=== PATIENT | male | born 1975 | race Caucasian/White ===

== ENCOUNTER 2019-11-02 10:48 | Emergency (ER) | payer OTHER ==
[~2019-11-02] VITALS: Ht 185.4 cm; Wt 136.1 kg
[~2019-11-02 10:48] MED LIST: CYCL10 PO; ESCI10 PO; HYDACE5325 PO; IBUP800 PO; LAMO100 PO; VERA80 PO
[2019-11-02 12:13] LABS: Alanine Aminotransfer (ALT/SGP 66 U/L (12-78); Albumin, Blood 2.9 g/dL (3.4-5.0); Albumin/Globulin Ratio 0.6 (0.8-1.8); Alk Phos 68 U/L (50-136); Anion Gap 10 mmol/L (6-16); Aspartate Aminotrans (AST/SGOT 44 U/L (12-37); Bilirubin, Total 0.4 mg/dL (0.1-1.0); Blood Urea Nitrogen 19 mg/dL (8-24); Bun/Creatinine Ratio 14.8 (12.0-20.0); CO2, Blood 22 mmol/L (21-32); Calcium, Blood 7.5 mg/dL (8.5-10.1); Chloride, Blood 99 mmol/L (98-108); Creatinine, Blood 1.28 mg/dL (0.60-1.20); Globulin, Blood 4.6 g/dL (2.2-4.0); Glomerular Filtration Rate >60 (60-); Glucose, Blood 173 mg/dL (70-99); Potassium, Blood 3.9 mmol/L (3.5-5.5); Sodium, Blood 131 mmol/L (136-145); Total Protein, Blood 7.5 g/dL (6.4-8.2); Troponin I <0.015 ng/mL (0.000-0.040)
[2019-11-02 12:45] LABS: BASOPHILS ABSOLUTE AUTO 0.04 K/mm3 (0.00-0.23); BASOPHILS PERCENT AUTO 0 % (0-2); EOSINOPHILS PERCENT AUTO 0 % (0-6); Hematocrit 37.6 % (37.0-53.0); Hemoglobin 12.6 g/dL (13.5-17.5); IMMATURE GRAN ABSOLUTE AUTO 0.06 K/mm3 (0.00-0.10); IMMATURE GRAN PERCENT AUTO 1 % (0-1); LYMPHOCYTES ABSOLUTE AUTO 0.51 K/mm3 (0.84-5.20); LYMPHOCYTES PERCENT AUTO 6 % (21-46); MONOCYTES PERCENT AUTO 11 % (4-13); Mean Corpuscular HGB 28.9 pg (26.0-34.0); Mean Corpuscular HGB Conc 33.5 g/dL (31.5-36.5); Mean Corpuscular Volume 86 fL (80-100); Mean Platelet Volume 9.7 fL (9.1-12.4); NEUTROPHILS ABSOLUTE AUTO 7.46 K/mm3 (1.96-9.15); NEUTROPHILS PERCENT AUTO 82 % (41-73); Platelet Count 200 K/mm3 (150-400); RDW Coefficient Variation 12.1 % (11.7-14.2); RDW Standard Deviation 38.6 fL (35.1-46.3); Red Blood Cell Count 4.36 M/mm3 (4.30-5.90); White Blood Cell Count 9.07 K/mm3 (4.00-11.30)
[2019-11-02 13:31] LABS: Adenovirus Not Detected (NOT DETECT); Bordetella pertussis Not Detected (NOT DETECT); Chlamydophila pneumoniae Not Detected (NOT DETECT); Coronavirus 229E Not Detected (NOT DETECT); Coronavirus HKU1 Not Detected (NOT DETECT); Coronavirus NL63 Not Detected (NOT DETECT); Coronavirus OC43 Not Detected (NOT DETECT); Human Metapneumovirus Not Detected (NOT DETECT); Human Rhinovirus/Enterovirus Not Detected (NOT DETECT); Influenza A/2009-H1 Not Detected (NOT DETECT); Influenza A/H1 Not Detected (NOT DETECT); Influenza A/H3 Not Detected (NOT DETECT); Influenza B Not Detected (NOT DETECT); Mycoplasma pneumoniae Not Detected (NOT DETECT); Parainfluenza Virus 1 Not Detected (NOT DETECT); Parainfluenza Virus 2 Not Detected (NOT DETECT); Parainfluenza Virus 3 Not Detected (NOT DETECT); Parainfluenza Virus 4 Not Detected (NOT DETECT); Respiratory Syncytial Virus Not Detected (NOT DETECT)
[2019-11-02] MEDS ORDERED: Zithromax250 MG PO (13:48)
[2019-11-02] MEDS ORDERED: BENZ100A PO ×2 (13:48→14:06)
[2019-11-02] MEDS ORDERED: ONDA4ODT MM ×2 (13:48→14:06)
[2019-11-02] MEDS ORDERED: CEFD300 PO ×2 (13:48→14:05)
[2019-11-02] MEDS ORDERED: AZIT250 PO (14:04)
[2019-11-02] MEDS ORDERED: MECL25 PO (14:07)
[2019-11-02] MEDS ORDERED: GABA300 PO (14:07)
== END 2019-11-02 15:10 | disposition home or self-care (01) ==
LOC: ER 10:48
PROVIDERS: Emergency Medicine
DX: J18.9 Pneumonia, unspecified organism (principal); Z20.828 Contact with and (suspected) exposure to other viral communicable diseases; I10 Essential (primary) hypertension; Z79.899 Other long term (current) drug therapy
CPT/HCPCS: 0099U; 36415; 71045; 80053; 84145; 84484; 85025; 86140; 96361; 96365; 96375; 99283-25; J0696; J1885; J2405; J7030; J7120; U0002

== ENCOUNTER 2022-05-19 09:37 | Day surgery (SDC) | payer OTHER ==
[~2022-05-19] VITALS: Ht 185.4 cm; Wt 145.6 kg
[~2022-05-19 09:37] MED LIST changes: +ACET500 PO; +AZIT250 PO; +BENZ100A PO; +CEFD300 PO; +GABA300 PO; +MECL25 PO; +METF500 PO; +ONDA4ODT MM; +Zithromax250 MG PO
--- NOTE | 2022-05-19 10:43 | NUR ---
History, Chart, Medications and Allergies reviewed before start of procedure. Patient confirms NPO status and agrees with scheduled surgery. Lungs clear T/O to Auscultation.
--- NOTE | 2022-05-19 11:00 | NUR ---
NOZIN X3 AMPULES USED TO CLEAN NARES BILAT PER DR MICHEL. KNEE HIGH BRET HOSE WITH CALF PAS APPLIED BLE.
--- NOTE | 2022-05-19 18:52 | NUR ---
SHIFT SUMMARY PT S/P FOR L TOTAL HIP. PT EXPERIENCING A LOT OF PAIN AND DESATS WHILE SLEEPING. PT'S PAIN TREATED PER EMR AND BREATHING IS IMPROVING WITH COUGHING/DEEP BREATHING.
[2022-05-20 04:46] LABS: BASOPHILS ABSOLUTE AUTO 0.02 K/mm3 (0.00-0.23); BASOPHILS PERCENT AUTO 0 % (0-2); EOSINOPHILS PERCENT AUTO 0 % (0-6); Hematocrit 33.7 % (37.0-53.0); Hemoglobin 11.3 g/dL (13.5-17.5); IMMATURE GRAN PERCENT AUTO 1 % (0-1); LYMPHOCYTES ABSOLUTE AUTO 1.58 K/mm3 (0.84-5.20); LYMPHOCYTES PERCENT AUTO 8 % (21-46); MONOCYTES ABSOLUTE AUTO 1.43 K/mm3 (0.16-1.47); MONOCYTES PERCENT AUTO 7 % (4-13); Mean Corpuscular HGB 28.8 pg (26.0-34.0); Mean Corpuscular HGB Conc 33.5 g/dL (31.5-36.5); Mean Corpuscular Volume 86 fL (80-100); Mean Platelet Volume 9.8 fL (9.1-12.4); NEUTROPHILS ABSOLUTE AUTO 17.52 K/mm3 (1.96-9.15); NEUTROPHILS PERCENT AUTO 85 % (41-73); Platelet Count 287 K/mm3 (150-400); RDW Coefficient Variation 12.3 % (11.7-14.2); RDW Standard Deviation 38.9 fL (35.1-46.3); Red Blood Cell Count 3.92 M/mm3 (4.30-5.90); White Blood Cell Count 20.65 K/mm3 (4.00-11.30)
[2022-05-20 05:08] LABS: Bun/Creatinine Ratio 28.1 (12.0-20.0); Calcium, Blood 8.3 mg/dL (8.5-10.1); Creatinine, Blood 1.14 mg/dL (0.60-1.20); Potassium, Blood 4.7 mmol/L (3.5-5.5)
--- NOTE | 2022-05-20 07:13 | NUR ---
SHIFT SUMMARY NO ACUTE CHANGES THROUGH THE NIGHT, VSS, PAIN MANAGED PER EMAR, RESP UNLABORED, ON RA, TOLERATING PO INTAKE, VOIDING WNL, DRSG REMAINS C/D/I, ICE PACK IN PLACE. CALL LIGHT IN REACH
[2022-05-20] MEDS ORDERED: ASPI81CH PO (08:38)
[2022-05-20] MEDS ORDERED: Percocet 5-3251 EACH PO (08:38)
--- NOTE | 2022-05-20 14:41 | NUR ---
DISCHARGE NOTE: PATIENT AND PATIENTS SPOUSE WERE EDUCATED ON DISCHARGE INSTRUCTIONS. BOTH VERBALIZED UNDERSTANDING OF INSTRUCTIONS AND HAD NO FURTHER QUESTIONS AT THIS TIME. HARD PERSCRIPTIONS WERE GIVEN TO SPOUSE. IV WAS TAKEN OUT AND WNL. PO PAIN MEDICATION MANAGE HIS PAIN. LEFT HIP HAS AN AQUACEL THAT IS C/D/I. DENIES NUMBNESS AND TINGLING. HE IS A SBA WITH FWW AND GAIT BELT. HE IS TOLERATING PO INTAKE AND IS VOIDING. HE IS DRESSED AND HAS HIS ITEMS GATHERED IN THE ROOM. HE IS BEING WHEELCHAIRED OUT TO HIS SPOUSES CAR TO BE TAKEN HOME.
== END 2022-05-20 14:44 | disposition home or self-care (01) ==
LOC: ORSCMMR 09:37 → ORD 11:00 → ORSCMMR 11:00 → ORD 12:30 → SURS 16:54 → ORSCMMR 05-20 14:44
PROVIDERS: Orthopaedic Surgery
PROC: 0SRB0JZ Replacement of Left Hip Joint with Synthetic Substitute, Open Approach (ICD-10-PCS; principal; 2022-05-19 11:00)
DX: M16.12 Unilateral primary osteoarthritis, left hip (principal); M25.852 Other specified joint disorders, left hip; I10 Essential (primary) hypertension; G47.33 Obstructive sleep apnea (adult) (pediatric); F43.10 Post-traumatic stress disorder, unspecified; R73.03 Prediabetes; E66.01 Morbid (severe) obesity due to excess calories; Z68.41 Body mass index [BMI] 40.0-44.9, adult; F32.A Depression, unspecified; Z79.84 Long term (current) use of oral hypoglycemic drugs
CPT/HCPCS: 36415; 72170; 80048; 82947; 85025; 97110; 97116; 97161; 97530; A9270; C1776; J0171; J0690; J0735; J1100; J1170; J1815; J1885; J2250; J2370; J2405; J2704; J2765; J2795; J3010; J7120

== ENCOUNTER 2024-02-24 12:41 | Day surgery (SDC) | payer BC ==
[~2024-02-24] VITALS: Ht 185.4 cm; Wt 143.5 kg
[~2024-02-24 12:41] MED LIST changes: +ASPI81CH PO; +HYDR1TAB94 PO; +Lactated Ringer's 1,000 ML IV ONE; +Percocet 5-3251 EACH PO; +TAMS.4ER PO
[2024-02-24] MEDS ORDERED: LAMO25 (12:54)
[2024-02-24] MEDS ORDERED: BUPROPION XL450 MG (12:59)
[2024-02-24] MEDS ORDERED: Lactated Ringer's 1,000 ML IV ONE (13:50)
[2024-02-24] MEDS ORDERED: propofoL 60 ML IV ONE (14:13)
[2024-02-24 15:28] VITALS: BP 105/73
== END 2024-02-24 15:22 | disposition home or self-care (01) ==
LOC: ORSCSDS 12:41
PROVIDERS: Surgery
PROC: 0DJD8ZZ Inspection of Lower Intestinal Tract, Via Natural or Artificial Opening Endoscopic (ICD-10-PCS; principal; 2024-02-24 14:00)
DX: Z12.11 Encounter for screening for malignant neoplasm of colon (principal); Z80.0 Family history of malignant neoplasm of digestive organs; G47.33 Obstructive sleep apnea (adult) (pediatric); K57.30 Diverticulosis of large intestine without perforation or abscess without bleeding; E11.9 Type 2 diabetes mellitus without complications; K76.0 Fatty (change of) liver, not elsewhere classified; I10 Essential (primary) hypertension; F32.A Depression, unspecified; E66.01 Morbid (severe) obesity due to excess calories; Z68.41 Body mass index [BMI] 40.0-44.9, adult; Z79.82 Long term (current) use of aspirin; Z79.84 Long term (current) use of oral hypoglycemic drugs; Z79.899 Other long term (current) drug therapy
CPT/HCPCS: 82947; J2704; J7120

== ENCOUNTER 2024-08-09 11:45 | Day surgery (SDC) | payer BC ==
[~2024-08-09] VITALS: Ht 185.4 cm; Wt 145.5 kg
[~2024-08-09 11:45] MED LIST changes: +BUPROPION XL450 MG; +EPINEPhrine HCl 1 MG / ML 30ML Vial ONE; +LAMO25; -Lactated Ringer's 1,000 ML IV ONE; +Lidocaine 1%-Epineph 1:200000 30 ML SDV ONE; +Lidocaine 2%-Epineph 1:200000 20 ML SDV ONE
[2024-08-09] MEDS ORDERED: Tranexamic Acid 100 ML IV ONE (11:56)
[2024-08-09] MEDS ORDERED: Lactated Ringer's 1,000 ML IV ONE (12:04)
[2024-08-09] MEDS ORDERED: propofoL 20 ML IV ONE (12:37)
[2024-08-09] MEDS ORDERED: Rocuronium Bromide 10 MG/ML 5ML Injection IV ONE ×2 (12:38)
[2024-08-09] MEDS ORDERED: FentaNYL Citrate 50 MCG/ML 2 ML Injection ONE ×3 (12:38→14:32)
[2024-08-09] MEDS ORDERED: Dexamethasone Sod Phos 10 MG/ML 1ML VIAL ONE (12:38)
--- NOTE | 2024-08-09 13:17 | NUR ---
08/09/24 1317 Marylou Quan START[address] BY DR. CARMEN AT 2096
[2024-08-09] MEDS ORDERED: Ondansetron HCl 2 MG / ML 2ML Vial ONE (13:38)
[2024-08-09] MEDS ORDERED: Ketorolac Tromethamine 30mg Vial ONE (13:38)
[2024-08-09] MEDS ORDERED: Sugammadex Sodium 200 MG/2ML SDV (100 MG/ML) ONE (13:42)
[2024-08-09 14:33] VITALS: BP 155/94
--- NOTE | 2024-08-09 14:47 | NUR ---
08/09/24 1447 VAHID BHAGAT 1434 25MCG IVP FENTANYL GIVEN FOR PAIN 5/10 TO SINUS/HEAD AREA 1445 25MCG IVP FENTANYL GIVEN FOR PAIN 5/10 TO SINUS/HEAD. BP 152/98, SAYS 97% ON 2L FACE MASK. 97 BPM
[2024-08-09] MEDS ORDERED: OxyCODONE HCL 5 MG TAB ONE (15:25)
== END 2024-08-09 16:12 | disposition home or self-care (01) ==
LOC: ORSCSDS 11:45
PROVIDERS: Otolaryngology
PROC: 09SL0ZZ Reposition Nasal Turbinate, Open Approach (ICD-10-PCS; principal; 2024-08-09 13:45)
PROC: 09BM0ZZ Excision of Nasal Septum, Open Approach (ICD-10-PCS; principal; 2024-08-09 13:45)
DX: J34.2 Deviated nasal septum (principal); J34.3 Hypertrophy of nasal turbinates; G47.33 Obstructive sleep apnea (adult) (pediatric); R73.03 Prediabetes; E66.01 Morbid (severe) obesity due to excess calories; Z68.41 Body mass index [BMI] 40.0-44.9, adult
CPT/HCPCS: 82947; A9270; J0171; J1100; J1885; J2405; J2704; J3010

== ENCOUNTER 2024-08-10 07:58 | Observation (INO) | payer BC ==
[~2024-08-10] VITALS: Ht 185.4 cm; Wt 145.2 kg
[~2024-08-10 07:58] MED LIST changes: -EPINEPhrine HCl 1 MG / ML 30ML Vial ONE; -Lidocaine 1%-Epineph 1:200000 30 ML SDV ONE; -Lidocaine 2%-Epineph 1:200000 20 ML SDV ONE
[2024-08-10 09:31] LABS: BASOPHILS ABSOLUTE AUTO 0.04 K/mm3 (0.00-0.23); BASOPHILS PERCENT AUTO 0 % (0-2); EOSINOPHILS PERCENT AUTO 0 % (0-6); Hematocrit 40.1 % (37.0-53.0); Hemoglobin 13.4 g/dL (13.5-17.5); IMMATURE GRAN PERCENT AUTO 1 % (0-1); LYMPHOCYTES PERCENT AUTO 11 % (21-46); MONOCYTES ABSOLUTE AUTO 1.42 K/mm3 (0.16-1.47); MONOCYTES PERCENT AUTO 8 % (4-13); Mean Corpuscular HGB 28.3 pg (26.0-34.0); Mean Corpuscular HGB Conc 33.4 g/dL (31.5-36.5); Mean Corpuscular Volume 85 fL (80-100); Mean Platelet Volume 9.3 fL (9.1-12.4); NEUTROPHILS PERCENT AUTO 81 % (41-73); Platelet Count 329 K/mm3 (150-400); RDW Coefficient Variation 12.8 % (11.7-14.2); RDW Standard Deviation 39.1 fL (35.1-46.3); Red Blood Cell Count 4.73 M/mm3 (4.30-5.90); White Blood Cell Count 18.86 K/mm3 (4.00-11.30)
[2024-08-10 09:47] LABS: Albumin, Blood 3.6 g/dL (3.4-5.0); Albumin/Globulin Ratio 0.9 (0.8-1.8); Bilirubin, Total 0.2 mg/dL (0.1-1.0); Bun/Creatinine Ratio 23.6 (12.0-20.0); Calcium, Blood 8.9 mg/dL (8.5-10.1); Creatinine, Blood 1.1 mg/dL (0.60-1.20); Globulin, Blood 4.1 g/dL (2.2-4.0); Potassium, Blood 4.6 mmol/L (3.5-5.5); Total Protein, Blood 7.7 g/dL (6.4-8.2)
[2024-08-10] MEDS ORDERED: NS 1,000 ML IV SCH ×2 (09:50→14:20)
[2024-08-10] MEDS ORDERED: OxyCODONE HCL 5 MG TAB PO ONE (13:05)
[2024-08-10] MEDS ORDERED: Acetaminophen 500 MG Tab PO ONE (13:05)
[2024-08-10] MEDS ORDERED: Ibuprofen 600 MG Tab PO ONE (13:05)
[2024-08-10] MEDS ORDERED: FLU VACC TS2024-25(6MOS UP)/PF 45 MCG/0.5 ML SYRINGE IM SCH (14:20)
[2024-08-10] MEDS ORDERED: OxyCODONE 5 mg/Acetamin 325 mg TABLET PO PRN (14:20)
[2024-08-10 16:23] VITALS: BP 135/80
[2024-08-10] MEDS ORDERED: Insulin Human Lispro 100 Units/ML 3ML Syringe SC SCH (16:30)
--- NOTE | 2024-08-10 19:52 | NUR ---
SHIFT SUMMMARY- PT ADMITTED FOR DIZZINESS, HEAD CT NEGATIVE. MRI ORDERED FOR TOMORROW MORNING PLANNED FOR 1000. PT ALERT ORIENTED AND INDEPENDENT IN THE ROOM. NO CURRENT S&S OF DISTRESS NOTED. BEDSIDE REPORT COMPLETED WITH NIGHT RN. FAMILY AT THE BEDSIDE. PROPHYLACTIC ABX ORDERED PER DR ACOSTA PT STARTED THEM PRIOR TO THE PROCEDURE YESTERDAY. PT IN BED, CALL LIGHT IN REACH NO S&S OF DISTRESS.
[2024-08-10 20:39] VITALS: BP 134/79
[2024-08-10 20:40] VITALS: BP 139/82
[2024-08-10 20:41] VITALS: BP 142/88
[2024-08-10] MEDS ORDERED: Cephalexin Monohydrate 500 MG Cap PO SCH (21:00)
[2024-08-10 23:13] VITALS: BP 131/84
[2024-08-11 03:03] VITALS: BP 129/85
--- NOTE | 2024-08-11 05:28 | NUR ---
SHIFT SUMMARY: Pt is admitted for dizziness and is a full code. Is alert and able to make needs known. ADLs have been SBA. pain has been managed with PRN medication. Wesly reports sinus in the 90s with a bundle branch. No events.
[2024-08-11 05:43] LABS: Hematocrit 38.1 % (37.0-53.0); Hemoglobin 12.4 g/dL (13.5-17.5); Mean Corpuscular HGB 27.9 pg (26.0-34.0); Mean Corpuscular HGB Conc 32.5 g/dL (31.5-36.5); Mean Corpuscular Volume 86 fL (80-100); Mean Platelet Volume 9.5 fL (9.1-12.4); Platelet Count 285 K/mm3 (150-400); RDW Coefficient Variation 13.1 % (11.7-14.2); RDW Standard Deviation 40.7 fL (35.1-46.3); Red Blood Cell Count 4.45 M/mm3 (4.30-5.90); White Blood Cell Count 13.19 K/mm3 (4.00-11.30)
[2024-08-11 06:25] LABS: Anion Gap 9 mmol/L (3-11); Blood Urea Nitrogen 23 mg/dL (8-24); Bun/Creatinine Ratio 25.8 (12.0-20.0); CHOL/HDL RATIO 3.3; CO2, Blood 24 mmol/L (21-32); Calcium, Blood 7.9 mg/dL (8.5-10.1); Chloride, Blood 107 mmol/L (98-108); Cholesterol 170 mg/dL (50-200); Creatinine, Blood 0.89 mg/dL (0.60-1.20); Glomerular Filtration Rate 106 (60-); Glucose, Blood 135 mg/dL (70-99); HDL Cholesterol 51 mg/dL (>39); Low Density Lipoprotein Chol 103 mg/dL (0-110); Potassium, Blood 4.2 mmol/L (3.5-5.5); Sodium, Blood 136 mmol/L (136-145); Triglycerides 82 mg/dL (30-160); Very Low Density Lipoprot Chol 16 mg/dL (6-32)
[2024-08-11 06:27] LABS: BASOPHILS PERCENT MAN 0 % (0-2); EOSINOPHILS ABSOLUTE MAN 0.13 K/mm3 (0.00-0.68); EOSINOPHILS PERCENT MAN 1 % (0-6); LYMPHOCYTES ABSOLUTE MAN 4.22 K/mm3 (0.84-5.20); LYMPHOCYTES PERCENT MAN 32 % (21-46); MONOCYTES ABSOLUTE MAN 0.79 K/mm3 (0.16-1.47); MONOCYTES PERCENT MAN 6 % (4-13); NEUTROPHILS ABSOLUTE MAN 8.04 K/mm3 (1.96-9.15); SEG NEUTROPHILS PERCENT MAN 61 % (41-73); TOTAL CELLS COUNTED 100
[2024-08-11 07:15] VITALS: BP 135/80
[2024-08-11] MEDS ORDERED: Enoxaparin 40 MG/0.4 ML SYR SC SCH (09:00)
[2024-08-11] MEDS ORDERED: Ibuprofen 400 MG Tab PO ONE (11:25)
[2024-08-11 15:44] VITALS: BP 143/96
[2024-08-11 15:45] VITALS: BP 147/95
[2024-08-11 15:47] VITALS: BP 152/99
[2024-08-11] MEDS ORDERED: Percocet 5-3251 EACH PO (16:32)
[2024-08-11] MEDS ORDERED: CEPH500 PO (16:32)
[2024-08-11] MEDS ORDERED: ASPI81CH PO (16:33)
[2024-08-11] MEDS ORDERED: METF500 PO (16:33)
[2024-08-11] MEDS ORDERED: PRINIVIL5 MG PO (16:33)
[2024-08-11] MEDS ORDERED: Budeprion Xl300 MG PO (16:54)
[2024-08-11] MEDS ORDERED: BUPROPION XL150 M1 PO (16:55)
--- NOTE | 2024-08-11 17:47 | NUR ---
DISCHARGE NOTE- PT WAS GIVEN VERBAL AND WRITTEN DIOSCHARGE INSTRUCTIONS AND ACKNOWLEDGED UNDERSTANDING OF THEM. NO S&S OF DISTRESS NOTED AT THE TIME OF DISCHARGE INSTRUCTIONS. PT ESCORTED OUT VIA WC. IV AND TELE DC'D PRIOR TO DISCHARGE
== END 2024-08-11 18:05 | disposition home or self-care (01) ==
LOC: ER 07:58 → MEDS 07:59
PROVIDERS: Student in an Organized Health Care Education/Training Program; ADMIT Internal Medicine
DX: E86.0 Dehydration (principal); R20.0 Anesthesia of skin; D72.829 Elevated white blood cell count, unspecified; E11.65 Type 2 diabetes mellitus with hyperglycemia; I10 Essential (primary) hypertension; F39 Unspecified mood [affective] disorder; E66.01 Morbid (severe) obesity due to excess calories; G47.33 Obstructive sleep apnea (adult) (pediatric); Z99.89 Dependence on other enabling machines and devices; Z68.41 Body mass index [BMI] 40.0-44.9, adult
CPT/HCPCS: 36415; 70450; 70496; 70498; 80048; 80053; 80061; 82947; 83036; 85025; 93005; 93010; 94762; 96360; 96360-59; 96361; 96372; 99285-25; A9270; G0378; J1650; J7030; Q9967

== ENCOUNTER → 2024-08-15 | Outpatient (CLI) | payer BC ==
[~2024-08-15] MED LIST changes: +BUPROPION XL150 M1 PO; +Budeprion Xl300 MG PO; +CEPH500 PO; +PRINIVIL5 MG PO
== END | disposition home or self-care (01) ==
LOC: LAB SHORT 18:39 → LAB 18:39
DX: E11.65 Type 2 diabetes mellitus with hyperglycemia (principal)
CPT/HCPCS: 82043

== ENCOUNTER 2024-10-05 18:12 | Inpatient (IN) | payer BC ==
[~2024-10-05] VITALS: Ht 185.4 cm; Wt 135.6 kg
[2024-10-05 19:12] LABS: BASOPHILS ABSOLUTE AUTO 0.04 K/mm3 (0.00-0.23); BASOPHILS PERCENT AUTO 0 % (0-2); EOSINOPHILS ABSOLUTE AUTO 0.25 K/mm3 (0.00-0.68); EOSINOPHILS PERCENT AUTO 2 % (0-6); Hematocrit 41.2 % (37.0-53.0); Hemoglobin 13.9 g/dL (13.5-17.5); IMMATURE GRAN ABSOLUTE AUTO 0.03 K/mm3 (0.00-0.10); IMMATURE GRAN PERCENT AUTO 0 % (0-1); LYMPHOCYTES ABSOLUTE AUTO 1.49 K/mm3 (0.84-5.20); LYMPHOCYTES PERCENT AUTO 14 % (21-46); MONOCYTES ABSOLUTE AUTO 1.03 K/mm3 (0.16-1.47); MONOCYTES PERCENT AUTO 10 % (4-13); Mean Corpuscular HGB 28.5 pg (26.0-34.0); Mean Corpuscular HGB Conc 33.7 g/dL (31.5-36.5); Mean Corpuscular Volume 84 fL (80-100); Mean Platelet Volume 9.7 fL (9.1-12.4); NEUTROPHILS ABSOLUTE AUTO 7.62 K/mm3 (1.96-9.15); NEUTROPHILS PERCENT AUTO 73 % (41-73); Platelet Count 275 K/mm3 (150-400); RDW Coefficient Variation 12.7 % (11.7-14.2); RDW Standard Deviation 39.2 fL (35.1-46.3); Red Blood Cell Count 4.88 M/mm3 (4.30-5.90); White Blood Cell Count 10.46 K/mm3 (4.00-11.30)
[2024-10-05] MEDS ORDERED: Ketorolac Tromethamine 15mg Vial IV ONE (19:15)
[2024-10-05] MEDS ORDERED: CefTRIAXone Sodium 2,000 MG in NS 100 ML IV ONE (19:15)
[2024-10-05] MEDS ORDERED: NS 1,000 ML IV SCH ×2 (19:20→22:50)
[2024-10-05] MEDS ORDERED: Azithromycin 500 MG in NS 250 ML IV ONE (19:20)
[2024-10-05 19:43] LABS: Albumin, Blood 3.7 g/dL (3.4-5.0); Albumin/Globulin Ratio 0.9 (0.8-1.8); Bilirubin, Total 0.3 mg/dL (0.1-1.0); Bun/Creatinine Ratio 18.1 (12.0-20.0); Calcium, Blood 8.6 mg/dL (8.5-10.1); Creatinine, Blood 0.99 mg/dL (0.60-1.20); Globulin, Blood 4.1 g/dL (2.2-4.0); Total Protein, Blood 7.8 g/dL (6.4-8.2)
[2024-10-05] MEDS ORDERED: Albuterol 2.5 MG/3 ML VIAL INH ONE (20:15)
[2024-10-05] MEDS ORDERED: Acetaminophen 500 MG Tab PO ONE (21:00)
[2024-10-05] MEDS ORDERED: Acetaminophen 325 MG TABLET PO PRN (22:50)
[2024-10-05] MEDS ORDERED: Ondansetron HCl 2 MG / ML 2ML Vial IV PRN (22:50)
[2024-10-05] MEDS ORDERED: Enoxaparin 40 MG/0.4 ML SYR SC SCH (23:00)
[2024-10-06] VITALS (7 sets, daily range): BP systolic 109–142; BP diastolic 71–79
[2024-10-06] MEDS ORDERED: Guaifenesin/Dextromethorphan Syrup 5 ML UDC PO PRN (00:45)
[2024-10-06 00:51] LABS: Influenza A, PCR NEGATIVE (NEGATIVE); Influenza B, PCR NEGATIVE (NEGATIVE); Resp Syncytial Virus, PCR NEGATIVE (NEGATIVE); SARS-Cov-2 (COVID-19) PCR, MMC NEGATIVE (NEGATIVE)
[2024-10-06] MEDS ORDERED: Albuterol 2.5 MG/3 ML VIAL INH SCH (01:10)
--- NOTE | 2024-10-06 01:46 | NUR ---
PATIENT IS A NEW ADMIT FROM THE ED. ALERT ORIENTED AND INDEPENDENT TRANSFER. ON ROOM AIR. DENIES CHEST PAIN AND N/V. AFEBRILE DOWN TO 98.1. SOB W/EXERTION. COUGH IS PRODUCTIVE AT TIMES. GUAIFENSIN 10 mL GIVEN PER EMAR. TYLENOL 650 MG GIVEN FOR BACK/RIB PAIN RELATED TO COUGHING EVENTS. NO SYNCOPE EVENTS. TELEMETRY PLACED NSR 88. REPORTS USES DEXCOM DEVICE TO MONITOR GLUCOSE LEVEL WITH NEWLY DX T2DM LAST TWO MONTHS. PIV INTACT. NS STARTED @ 75mL/HR X ONE BAG. ORIENTED TO ROOM AND CALL LIGHT SYSTEM. REPORTS WANTS TO SLEEP AFTER ADMIT. WARM BLANKETS PROVIDED. WCTM.
[2024-10-06 05:53] LABS: BASOPHILS ABSOLUTE AUTO 0.06 K/mm3 (0.00-0.23); BASOPHILS PERCENT AUTO 1 % (0-2); EOSINOPHILS ABSOLUTE AUTO 0.14 K/mm3 (0.00-0.68); EOSINOPHILS PERCENT AUTO 2 % (0-6); Hematocrit 37.7 % (37.0-53.0); Hemoglobin 12.5 g/dL (13.5-17.5); IMMATURE GRAN ABSOLUTE AUTO 0.02 K/mm3 (0.00-0.10); IMMATURE GRAN PERCENT AUTO 0 % (0-1); LYMPHOCYTES ABSOLUTE AUTO 2.15 K/mm3 (0.84-5.20); LYMPHOCYTES PERCENT AUTO 26 % (21-46); MONOCYTES ABSOLUTE AUTO 0.88 K/mm3 (0.16-1.47); MONOCYTES PERCENT AUTO 11 % (4-13); Mean Corpuscular HGB 28.1 pg (26.0-34.0); Mean Corpuscular HGB Conc 33.2 g/dL (31.5-36.5); Mean Corpuscular Volume 85 fL (80-100); Mean Platelet Volume 10.1 fL (9.1-12.4); NEUTROPHILS ABSOLUTE AUTO 5.17 K/mm3 (1.96-9.15); NEUTROPHILS PERCENT AUTO 61 % (41-73); Platelet Count 250 K/mm3 (150-400); RDW Standard Deviation 40.3 fL (35.1-46.3); Red Blood Cell Count 4.45 M/mm3 (4.30-5.90); White Blood Cell Count 8.42 K/mm3 (4.00-11.30)
[2024-10-06 06:23] LABS: Albumin, Blood 3.1 g/dL (3.4-5.0); Albumin/Globulin Ratio 0.8 (0.8-1.8); Bilirubin, Total 0.3 mg/dL (0.1-1.0); Bun/Creatinine Ratio 17.3 (12.0-20.0); Calcium, Blood 8.1 mg/dL (8.5-10.1); Creatinine, Blood 0.99 mg/dL (0.60-1.20); Globulin, Blood 3.8 g/dL (2.2-4.0); Potassium, Blood 4.2 mmol/L (3.5-5.5); Total Protein, Blood 6.9 g/dL (6.4-8.2)
[2024-10-06] MEDS ORDERED: OxyCODONE 5 mg/Acetamin 325 mg TABLET PO PRN (06:40)
[2024-10-06] MEDS ORDERED: BuPROPion HCl 75 MG Tab PO SCH (08:30)
[2024-10-06] MEDS ORDERED: Lisinopril 5 MG Tab PO SCH (09:00)
[2024-10-06] MEDS ORDERED: Chlorpheniramine/Hydroc Polistir 5 ML UDC PO PRN (12:30)
[2024-10-06] MEDS ORDERED: DEXTROMETHORPHAN/BENZOCAINE 1 EACH LOZENGE MT PRN (12:30)
[2024-10-06 14:46] LABS: Adenovirus Not Detected (NOT DETECT); Bordetella pertussis Not Detected (NOT DETECT); Chlamydophila pneumoniae Not Detected (NOT DETECT); Coronavirus 229E Not Detected (NOT DETECT); Coronavirus HKU1 Not Detected (NOT DETECT); Coronavirus NL63 Not Detected (NOT DETECT); Coronavirus OC43 Not Detected (NOT DETECT); Human Metapneumovirus Not Detected (NOT DETECT); Human Rhinovirus/Enterovirus Not Detected (NOT DETECT); Influenza A/2009-H1 Not Detected (NOT DETECT); Influenza A/H1 Not Detected (NOT DETECT); Influenza A/H3 Not Detected (NOT DETECT); Influenza B Not Detected (NOT DETECT); Mycoplasma pneumoniae Detected (NOT DETECT); Parainfluenza Virus 1 Not Detected (NOT DETECT); Parainfluenza Virus 2 Not Detected (NOT DETECT); Parainfluenza Virus 3 Not Detected (NOT DETECT); Parainfluenza Virus 4 Not Detected (NOT DETECT); Respiratory Syncytial Virus Not Detected (NOT DETECT); SARS-Cov-2 (COVID-19), BioFire Not Detected (NOT DETECT)
--- NOTE | 2024-10-06 16:15 | NUR ---
NO ACUTE CHANGES THIS SHIFT. PT REPORTED IMPROVEMENT SINCE YESTERDAY REGARDING COUGH AND FEELING DIZZY. PT REPORTED A SORE THROAT AND SEVERE COUGH AND WAS TREATED PER EMR. DENIES CP/PRESSURE OR WORSENING SOB.
--- NOTE | 2024-10-06 17:43 | NUR ---
THIS RN HAS REVIEWED CLINICAL ENGINEER DOCUMENTATION AND SUMMARY NOTE AND DO AGREE WITH HER ASSESSMENT AND NOTATION.
[2024-10-06] MEDS ORDERED: CefTRIAXone Sodium 1,000 MG in NS 100 ML IV SCH (18:00)
[2024-10-06] MEDS ORDERED: NS 250 ML IV PRN (18:15)
[2024-10-06] MEDS ORDERED: Azithromycin 500 MG in NS 250 ML IV SCH (21:00)
[2024-10-07 04:16] VITALS: BP 130/71
--- NOTE | 2024-10-07 05:39 | NUR ---
SHIFT SUMM: PT IS A 49 YO FULL CODE WHO WAS ADMITTED FOR PNEUMONIA.PT IS A&OX4 AND CALLS TO MAKE NEEDS KNOWN AND IND IN THE ROOM. PT IS ON TELE WITH NSR @88.PT IS ONLY RECIEVING BS CHECKS IN AM. PT ON RA AND NO SOB BUT PRODUCTIVE COUGH MEDICATED PER EMAR. PT WAS ABLE TO GET SOME REST THIS SHIFT AND HAS CALL LIGHT IN REACH.
[2024-10-07 07:32] VITALS: BP 126/90
[2024-10-07] MEDS ORDERED: DULO30 PO (08:36)
[2024-10-07] MEDS ORDERED: Lactated Ringer's 1,000 ML IV ONE (08:55)
[2024-10-07] MEDS ORDERED: DULoxetine HCL 30 MG Cap DR PO SCH (09:00)
[2024-10-07 10:57] VITALS: BP 137/93
[2024-10-07] MEDS ORDERED: MOUNJARO5 MG/0.5 M SC (14:40)
[2024-10-07 15:32] VITALS: BP 125/81
[2024-10-07 19:15] VITALS: BP 127/85
--- NOTE | 2024-10-07 19:28 | NUR ---
PT A&OX4, RA, SR IN 80S ON TELE. PT STATED THAT HE FELT WEAKER TODAY THAN YESTERDAY AND HAS HAD MINIMAL URINE OUT PUT, AWARE, 1 L OF LR GIVEN. PT DECLINED COUGH SYRUP THIS SHIFT. MED REC UPDATED. IND IN ROOM, ASSISTED WITH SHOWER TODAY. CALLS APPROPRIATLY, CALL LIGHT IN REACH.
--- NOTE | 2024-10-08 02:45 | NUR ---
SHIFT SUMM: PT IS IND IN ROOM AND HAS BEEN RELAXING MOST OF THE SHIFT. PT REPORTS FEELING A LITTLE WORSE BUT HAS BEEN ABLE TO GET SOME SLEEP AND NOT COUGHING MUCH. PT STILL HAS SORE THROAT AND HAS BEEN MEDICATED PER EMAR. NO FEVERS THIS SHIFT. PT IS IND IN ROOM AND HAD TELE D/C'D THIS SHIFT. PT FINISHED 1 LITER OF LR AND REPORTS FEELING LESS DEHYDRATED. PT ALERT AND ORIENTED AND CALLS TO MAKE NEEDS KNOWN. MORE OF AN APPETITE,TOLERATED A SNACK THIS SHIFT.CALL LIGHT IN REACH.
[2024-10-08 03:47] VITALS: BP 130/75
[2024-10-08 05:24] LABS: BASOPHILS ABSOLUTE AUTO 0.03 K/mm3 (0.00-0.23); BASOPHILS PERCENT AUTO 1 % (0-2); EOSINOPHILS ABSOLUTE AUTO 0.31 K/mm3 (0.00-0.68); EOSINOPHILS PERCENT AUTO 5 % (0-6); Hematocrit 36.6 % (37.0-53.0); Hemoglobin 12.5 g/dL (13.5-17.5); IMMATURE GRAN ABSOLUTE AUTO 0.01 K/mm3 (0.00-0.10); IMMATURE GRAN PERCENT AUTO 0 % (0-1); LYMPHOCYTES ABSOLUTE AUTO 1.64 K/mm3 (0.84-5.20); LYMPHOCYTES PERCENT AUTO 28 % (21-46); MONOCYTES ABSOLUTE AUTO 0.58 K/mm3 (0.16-1.47); MONOCYTES PERCENT AUTO 10 % (4-13); Mean Corpuscular HGB 28.5 pg (26.0-34.0); Mean Corpuscular HGB Conc 34.2 g/dL (31.5-36.5); Mean Corpuscular Volume 83 fL (80-100); Mean Platelet Volume 9.1 fL (9.1-12.4); NEUTROPHILS ABSOLUTE AUTO 3.34 K/mm3 (1.96-9.15); NEUTROPHILS PERCENT AUTO 57 % (41-73); Platelet Count 261 K/mm3 (150-400); RDW Coefficient Variation 12.5 % (11.7-14.2); RDW Standard Deviation 38.3 fL (35.1-46.3); Red Blood Cell Count 4.39 M/mm3 (4.30-5.90); White Blood Cell Count 5.91 K/mm3 (4.00-11.30)
[2024-10-08 05:52] LABS: Bun/Creatinine Ratio 17.5 (12.0-20.0); Calcium, Blood 8.5 mg/dL (8.5-10.1); Creatinine, Blood 0.86 mg/dL (0.60-1.20); Potassium, Blood 4.2 mmol/L (3.5-5.5)
[2024-10-08 07:50] VITALS: BP 130/75
[2024-10-08] MEDS ORDERED: ACET325 PO (13:44)
[2024-10-08] MEDS ORDERED: GUAIFENESIN-DM 15 M2 PO (13:44)
[2024-10-08] MEDS ORDERED: VISBIOME 112.51 EACH PO (13:46)
[2024-10-08] MEDS ORDERED: Tessalon200 MG PO (13:47)
[2024-10-08] MEDS ORDERED: CEFP200 PO (13:51)
[2024-10-08] MEDS ORDERED: DOXY100 PO (13:52)
[2024-10-08] MEDS ORDERED: [UNRECOGNIZED DRUG - OTHER] PO (14:50)
[2024-10-08 15:59] VITALS: BP 110/74
== END 2024-10-08 17:47 | disposition home or self-care (01) | DRG 871 ==
LOC: ER 18:12 → ERHOLD 18:13 → MEDS 18:13
PROVIDERS: Internal Medicine; Student in an Organized Health Care Education/Training Program; ADMIT Internal Medicine
DX: A41.89 Other specified sepsis (principal); J15.7 Pneumonia due to Mycoplasma pneumoniae; E87.20 Acidosis, unspecified; R65.20 Severe sepsis without septic shock; I10 Essential (primary) hypertension; E11.9 Type 2 diabetes mellitus without complications; Z96.642 Presence of left artificial hip joint; Z79.84 Long term (current) use of oral hypoglycemic drugs
CPT/HCPCS: 0202U; 0241U; 36415; 71046; 80048; 80053; 82947; 83605; 83880; 85025; 87040; 93005; 93010; 94640; 94660; 94664; 94760; 94762; 96365; 96367; 96372; 96375; 99285-25; A9270; G0378; J0456; J0696; J1650; J1885; J7030; J7050; J7120